=== PATIENT | male | born 1970 | race African-American/Black ===

== ENCOUNTER 2018-12-06 12:00 | Emergency (ER) | payer BC, OTHER ==
--- NOTE | 2018-12-06 13:49 | RAD ---
CERVICAL SPINE 3 VIEWS: HISTORY: Injury, neck pain. FINDINGS: There is loss of cervical lordosis and straightening of the cervical spine. There are degenerative c hanges most prominent at C5-6-7 levels. No definite fracture or subluxation is seen. If there is focal tenderness, neurologic deficit, or high clinical suspicion for injury to the cervic al spine, further evaluation with CT scan should be performed. POS: [facility]
== END 2018-12-06 14:02 | disposition home or self-care (01) ==
LOC: ERS 12:00
DX: S16.1XXA Strain of muscle, fascia and tendon at neck level, initial encounter (principal); E78.5 Hyperlipidemia, unspecified; I10 Essential (primary) hypertension; V43.52XA Car driver injured in collision with other type car in traffic accident, initial encounter
CPT/HCPCS: 72040